=== PATIENT | male | born 1975 | race Caucasian/White ===

== ENCOUNTER → 2023-12-08 10:45 | Outpatient (REF) | payer BC, SELFPAY | LOC: RAD 10:45 | PROVIDERS: ATTENDING PHYSICIAN Physician Assistant; FAMILY PHYSICIAN Family Medicine | DX: R13.19 Other dysphagia (principal) | CPT/HCPCS: 74246 ==

== ENCOUNTER → 2024-02-19 15:58 | Outpatient (REF) | payer BC, SELFPAY | LOC: RAD 15:58 | PROVIDERS: ATTENDING PHYSICIAN Orthopaedic Surgery Hand Surgery; FAMILY PHYSICIAN Family Medicine | DX: M25.511 Pain in right shoulder (principal) | CPT/HCPCS: 73200 ==

== ENCOUNTER 2024-02-24 06:04 | Day surgery (SDC) | payer BC, SELFPAY ==
[2024-02-03 07:42] LABS: Hematocrit 42.8 % (39.0-52.0); Hemoglobin 13.9 g/dL (13.0-18.0); Mean Corp Hgb Conc. 32.5 g/dL (33.0-37.0); Mean Corpuscular Hgb 29.6 pg (27.0-31.0); Mean Corpuscular Volume 91.1 fL (80.0-94.0); Platelet Count 209 10^3/uL (130-400); Red Cell Dist. Width 12.4 % (11.5-14.5); White Blood Cell Count 6.3 10^3/uL (4.8-10.8)
[2024-02-03 08:24] LABS: ALT (SGPT) 23 U/L (0-50); AST (SGOT) 20 U/L (17-59); Albumin 4.5 g/dl (3.5-5.0); Alkaline Phosphatase 38 U/L (38-126); Blood Urea Nitrogen 18 mg/dl (9-20); Calcium 9.4 mg/dl (8.4-10.2); Carbon Dioxide 27 mmol/L (22-30); Chloride 101 mmol/L (98-107); Glucose 111 mg/dl (70-99); Potassium 4.6 mmol/L (3.5-5.1); Sodium 142 mmol/L (135-145); Total Bilirubin 0.3 mg/dl (0.2-1.3); Total Protein 6.9 g/dl (6.3-8.2); eGFR > 60.00
[2024-02-03 10:27] LABS: Glycohemoglobin (HgbA1c) 5.4 % (4.0-5.6)
[2024-02-03 12:20] VITALS: BMI 29.1
[2024-02-18 12:25] VITALS: BMI 29.1
[2024-02-24] VITALS (11 sets, daily range): BP systolic 118–146; BP diastolic 60–92
--- NOTE | 2024-02-24 06:51 | W.DS.TRANS ---
DC Summary - Staff Research Associate
-
Discharge Instructions:
Discharge Diagnosis/Procedures R TAQUERIA Garcia 02/24/24
Diet As tolerated
Activity No strenuous activity
Driving Restrictions No driving
Bathing Restrictions OK to Shower
Instructions:
Stand-Alone Forms: [facility] Total Shoulder D/C Inst.
Changes to Home Medications: Yes
Discharge Medications:
DC Medications w/original date entered in [employer]
Apigenin 1 tab PO DAILY 02/18/24
L-Threonine 200 mg PO DAILY 02/18/24
Medical Marijuana 1 dose PO PRN PRN back pain 02/18/24
creatine monohydrate 700 mg PO DAILY 02/18/24
fexofenadine 180 mg tablet 180 mg PO DAILY 02/18/24
inositol 900 mg PO DAILY 02/18/24
magnesium 145 mg PO DAILY 02/18/24
mupirocin 2 % topical ointment 1 applic topical BID 02/18/24
naproxen 500 mg tablet 500 mg PO BID PRN pain 02/18/24
sumatriptan succinate 25 mg tablet 25 mg PO PRN PRN migraines 02/18/24
Saccharomyces boulardii 250 mg capsule (Florastor) 250 mg PO BID #1 cap 02/24/24
acetaminophen 325 mg tablet (Tylenol) 650 mg (2 x 325 mg) PO QID #1 tab 02/24/24
aspirin 325 mg tablet 325 mg PO DAILY blood clot prevention #1 tab 02/24/24
celecoxib 100 mg capsule 100 mg PO BID Anti-inflammatory #14 caps 02/24/24
dexamethasone 4 mg tablet 4 mg PO BID inflammation #6 tabs 02/24/24
docusate sodium 100 mg capsule (Colace) 100 mg PO BID stool softner #1 cap 02/24/24
doxycycline hyclate 100 mg capsule 100 mg PO BID infection prevention #10 caps 02/24/24
magnesium hydroxide 400 mg/5 mL oral suspension (Milk of Magnesia) 30 ml PO HS PRN Constipation #1 mL 12/10/24
ondansetron 4 mg disintegrating tablet 4 mg PO Q6H PRN n/v #20 tabs 02/24/24
oxycodone 5 mg tablet 5 mg PO Q6H PRN 1 tab moderate pain, 2 tabs severe pain #30 tabs 02/24/24
sennosides 8.6 mg tablet (Senokot) 17.2 mg (2 x 8.6 mg) PO BID laxative #2 tabs 02/24/24
Home Medication Changes
Saccharomyces boulardii 250 mg capsule (Florastor) 250 mg PO BID #1 cap 02/24/24
acetaminophen 325 mg tablet (Tylenol) 650 mg (2 x 325 mg) PO QID #1 tab 02/24/24
aspirin 325 mg tablet 325 mg PO DAILY blood clot prevention #1 tab 02/24/24
celecoxib 100 mg capsule 100 mg PO BID Anti-inflammatory #14 caps 02/24/24
dexamethasone 4 mg tablet 4 mg PO BID inflammation #6 tabs 02/24/24
docusate sodium 100 mg capsule (Colace) 100 mg PO BID stool softner #1 cap 02/24/24
doxycycline hyclate 100 mg capsule 100 mg PO BID infection prevention #10 caps 02/24/24
magnesium hydroxide 400 mg/5 mL oral suspension (Milk of Magnesia) 30 ml PO HS PRN Constipation #1 mL 02/24/24
ondansetron 4 mg disintegrating tablet 4 mg PO Q6H PRN n/v #20 tabs 02/24/24
oxycodone 5 mg tablet 5 mg PO Q6H PRN 1 tab moderate pain, 2 tabs severe pain #30 tabs 02/24/24
sennosides 8.6 mg tablet (Senokot) 17.2 mg (2 x 8.6 mg) PO BID laxative #2 tabs 02/24/24
Pending Results: No
[2024-02-24] MEDS: TYLENOL 1000 MG PO (07:22)
[2024-02-24] MEDS: CELEBREX 200 MG PO (07:22)
[2024-02-24] MEDS: ANCEF 5 IV (12:04)
[2024-02-24] MEDS: ZOFRAN 4 MG IV (12:57)
[2024-02-24] MEDS: COMPAZINE 10 MG IV (13:16)
== END 2024-02-24 14:05 | disposition home or self-care (01) ==
LOC: SDS 06:04
PROVIDERS: ATTENDING PHYSICIAN Orthopaedic Surgery Hand Surgery; FAMILY PHYSICIAN Family Medicine
PROC: 0RRJ0J6 Replacement of Right Shoulder Joint with Synthetic Substitute, Humeral Surface, Open Approach (ICD-10-PCS; 2024-02-24)
DX: M19.011 Primary osteoarthritis, right shoulder (principal)
CPT/HCPCS: 23470; 36415; 73020; 80053; 83036; 85027; 87070; 93005; C1713; C1776

== ENCOUNTER 2024-04-30 06:19 | Day surgery (SDC) | payer BC, SELFPAY | END 2024-04-30 10:43 | LOC: GI 06:19 | PROVIDERS: ATTENDING PHYSICIAN Internal Medicine Gastroenterology; FAMILY PHYSICIAN Family Medicine | DX: Z12.11 Encounter for screening for malignant neoplasm of colon (principal); K64.8 Other hemorrhoids; K57.30 Diverticulosis of large intestine without perforation or abscess without bleeding | CPT/HCPCS: G0121 ==

== ENCOUNTER → 2024-05-18 06:12 | Outpatient (REF) | payer BC, SELFPAY | LOC: EMG 06:12 | PROVIDERS: ATTENDING PHYSICIAN Family Medicine | DX: R20.0 Anesthesia of skin (principal) | CPT/HCPCS: 95886; 95910 ==